=== PATIENT | female | born 1995 | race American Indian/Alaskan Native ===

== ENCOUNTER 2018-10-14 10:00 | Emergency (ER) | payer MEDICAID ==
[2018-10-14 10:42] VITALS: BMI 24.1
[2018-10-14] MEDS: Lactated Ringer's 1,000 ML IV SCH ×2 (11:50→13:00)
[2018-10-14 23:16] VITALS: BP 134/90; PULSE 75; RESP 18; TEMP 98; O2SAT 98
== END 2018-10-14 16:20 | disposition home or self-care (01) ==
LOC: H.EROB2 10:00 → MERGE 10:00 → UNMERGE 10:00 → H.EROB 10:40 → H.EROB2 16:20
DX: O26.93 Pregnancy related conditions, unspecified, third trimester (principal); R10.2 Pelvic and perineal pain; O26.853 Spotting complicating pregnancy, third trimester; Z3A.39 39 weeks gestation of pregnancy; R35.0 Frequency of micturition
CPT/HCPCS: 96374; 96376; 99283; J2270; J7120

== ENCOUNTER 2018-10-15 00:38 | Inpatient (IN) | payer MEDICAID, OTHER ==
[2018-10-14 11:53] VITALS: BMI 24.1
[2018-10-15] MEDS: Lactated Ringer's 1,000 ML IV ONE ×2 (01:20→02:50)
[2018-10-15] MEDS ORDERED: Oxytocin 30 UNIT 30 UNITS/500 ML BAG IV ONE (01:43)
[2018-10-15] MEDS ORDERED: Lactated Ringer's 1,000 ML IV SCH (01:45)
[2018-10-15] MEDS ORDERED: OXYTOCIN/0.9 % NS 20 UNIT/1,000 ML BAG IV SCH (01:45)
[2018-10-15 02:14] LABS: HEMOGLOBIN 12.7 g/dL (12.0-16.0); LYMPH # 0.7 K/uL (1.0-4.3); LYMPH % 5.8 % (20.0-40.0); MEAN CELL VOLUME 83.4 fl (81.0-99.0); MEAN CORPUSCULAR HEMOGLOBIN 26.4 pg (27.0-31.0); MEAN CORPUSCULAR HGB CONC 31.7 g/dL (33.0-37.0); MEAN PLATELET VOLUME 9.5 fl (7.2-11.7); MONO # 0.3 K/uL (0.0-0.8); MONO % 2.7 % (0.0-10.0); NEUT # 10.9 K/uL (1.8-7.0); NEUT % 91.5 % (50.0-75.0); NRBC % 0.1 % (0.0-0.0); PLATELET COUNT 227 K/uL (130-400); RBC 4.81 Mil/uL (3.80-5.20); RED CELL DISTRIBUTION WIDTH 14.1 % (11.5-14.5); WHITE BLOOD COUNT 11.9 K/uL (4.8-10.8)
[2018-10-15] MEDS ORDERED: Lidocaine 1% Inj (20ml) ONE (03:30)
--- NOTE | 2018-10-15 04:02 | OBPN ---
Datetime: 10/15/2018 03:50 IP Progress Impression: Normal progression of labor; Reassuring heart rate IP Informed Consent Obtain: Vaginal Delivery; Risks, Benefits and Alternatives Discussed IP Progress Plan: Continue present management; Anticipate Vaginal Delivery Pool Provider: Positive Membranes, Provider: Ruptured Amniotic Fluid Color, Provider: Clear Contraction Comments Provider: 1-2m FHR - Baseline A Provider: 140 Presentation-Admit: Vertex IP Progress Note Comment: Notified that she was 9cm (anteriot lip) and that pt wanted me to check to confirm exam. Active phase of labor PLAN: continue Nitrous/earlier she was offered IV sedation and/or epidural as well. observe labor progress She was given one liter of fluid...open one more liter if she decides for an epidural NICHD Accel Fetus A IP Provider: 15X15 FHR Category Provider Fetus A: Category I NICHD Variability Prov Fetus A: Moderate 6-25bpm Dilatation, Provider: 9 Effacement, Provider: 100 Station, Provider: 0 NICHD Decel Fetus A IP Provider: None Datetime: 10/14/2018 11:22 Gestation - Est Wks by US: 39.1 Vital Signs Provider: Reviewed; Within Normal Limits
[2018-10-15 04:04] LABS: LYMPHOCYTE 9 % (20-50); MONOCYTE 1 % (0-10); NEUTROPHIL 90 % (42-75); PLATELET ESTIMATE NORMAL (NORMAL); TOTAL CELLS COUNTED 100
[2018-10-15 05:03] VITALS: O2SAT 100
[2018-10-15] MEDS ORDERED: Benzocaine/Menthol SPRAY TOP PRN (06:17)
[2018-10-15] MEDS ORDERED: Oxycodone/Acetaminophen 5/325 mg Tab PO PRN ×2 (06:17→08:40)
--- NOTE | 2018-10-15 06:33 | OBDCSUM ---
Datetime: 10/14/2018 16:05 Discharge Diagnosis, Provider: False Labor - Undelivered
--- NOTE | 2018-10-15 06:34 | OBHP ---
Datetime: 10/15/2018 03:50 Presentation-Admit: Vertex Amniotic Fluid Color, Provider: Clear Contraction Comments Provider: 1-2m Pool Provider: Positive FHR Category Provider Fetus A: Category I Effacement, Provider: 100 Datetime: 10/15/2018 01:29 IP Adm Impression: Term, intrauterine ; Active labor IP Admit Plan: Admit to unit; Initiate labor protocol Extremities - PN: Normal Abdomen - PN: Normal Breast - PN: Not Done Lungs - PN: Normal Heart - PN: Normal Neurologic - PN: Normal HEENT - PN: Normal General - PN: Normal FHR - Baseline A Provider: 130-140s Membranes, Provider: Intact Comments, ACOG Physical Exam: Abdomen: Gravid IP Hx Assessment: The History has been Reviewed and is Current EGA AdmitDate IP: 39.2 Vital Signs Provider: Reviewed; Within Normal Limits IP Chief Complaint: Uterine contractions NICHD Variability Prov Fetus A: Moderate 6-25bpm NICHD Accel Fetus A IP Provider: 15X15 NICHD Decel Fetus A IP Provider: None Dilatation, Provider: 6 Station, Provider: -1 Datetime: 10/14/2018 11:22 Admit Comment, IP Provider: Pt is a 22 yo f 39.1 wk with pmh of asthma present to [facility] due to i ncrease frequency of contraction and back pain started on 04:00 10/14/12. Pt state she was having cont raction since 37 wk but this is becoming more frequent and severe. Pt state she vomited once but madhuri es any n/d/c. She does have some vaginal bleed and discharge blood no water gosh. Pt denies headache, dizziness, chest pain, sob, dysuria, polyuria, calf tenderness. [facility] [place] Allergy none med: Albuterol ( havent used for years) PMH: asthma OBGYN 1 miscarriage, 2 . PFH: diabete in parents Social: denies smoke/drink/ drug use 11:41 Assessment and plan A 22 yo f 39.1 wk with pmh of asthma present to [facility] due to increase frequency of contraction and back pain started on 04:00 10/14/12. 1Liter LR 4mg IVP morphine Monitor for any exacerbation LATE ENTRY OB Hospitalist on-call. Pt was seen with OB fellow. She appeared uncomfortable from CTX pain. Ag reew with note ... pain medication and will observe progress Pelvic Type - PN: Adequate Back - PN: Normal Thyroid - PN: Normal Gestation - Est Wks by US: 39.1 Genitourinary Exam: Normal DTRs - PN: Normal
--- NOTE | 2018-10-15 06:35 | OBHP ---
Datetime: 10/15/2018 01:29 IP Adm Impression: Term, intrauterine ; Active labor; Intact Membranes Admit Comment, IP Provider: 22 y/o at EGA 39.1 weeks by first trimester US done on with MARY 10/20/18, presents to [facility] with c/o painful uterine Contx that started yesterday at 4:30AM, and now has increased in intensity and frequency to Q 3 minutes. [facility] and was checked and sent home with 1 CM of cervical dilation and now decided to com e due to increasing CONTX. Patient also reports vaginal blood spotting and vaginal mucus discharge. R eports +FM. Denies LOF, MULLINS, chest pain, SOB, Blurred vision, N/V, dysuria. ROS: unremarkable, except as per HPI. provider: Dr Dhillon at [facility]. PMHx: Asthma. FMHx: Denies Allergies: NKA Meds: Ventolin Inh PRN OBGYN: Patient unclear of LMP due to irregular periods, h/o SABx1 and IAB x2. Gestational DM scree florecita 165 and patient states her 3 h TGT was WNL. Labs: Blood type A+, HIV neg 03/28, GBS neg 09/25, GC/CL 09/25 neg, Rubella + 03/28. Assessment 22 y/o at EGA 39 weeks with MARY 10/20/18, presenting with increasing painful uterine CONTX Q3 minutes, Pelvic exam by nurse: 6 cm of cervical dilation. Plan -Admit to L _ D -Monitor CONTX, VS -Monitor FHR tracing -Pain management -IVF hydration with LR -CBC w/ diff, type and screen Case discussed with attending Diane Katz MD PGY1 OB hospitalist note: Pt seen with PGY1. Agree with ntoe. Active labor. Discussion about labor, p ain managmentm, delivery and . She understood Presentation-Admit: Vertex Contraction Comments Provider: + Pool Provider: Negative EGA AdmitDate IP: 39.2 FHR Category Provider Fetus A: Category I
--- NOTE | 2018-10-15 06:38 | OBADHP ---
Datetime: 10/15/2018 03:50 Amniotic Fluid Color, Provider: Clear Effacement, Provider: 100 Datetime: 10/15/2018 01:29 Admit Comment, IP Provider: 22 y/o at EGA 39.1 weeks by first trimester US done on with MARY 10/20/18, presents to [facility] with c/o painful uterine Contx that started yesterday at 4:30AM, and now has increased in intensity and frequency to Q 3 minutes. [facility] and was checked and sent home with 1 CM of cervical dilation and now decided to com e due to increasing CONTX. Patient also reports vaginal blood spotting and vaginal mucus discharge. R eports +FM. Denies LOF, MULLINS, chest pain, SOB, Blurred vision, N/V, dysuria. ROS: unremarkable, except as per HPI. provider: Dr Dhillon at [facility]. PMHx: Asthma. FMHx: Denies Allergies: NKA Meds: Ventolin Inh PRN OBGYN: Patient unclear of LMP due to irregular periods, h/o SABx1 and IAB x2. Gestational DM scree florecita 165 and patient states her 3 h TGT was WNL. Labs: Blood type A+, HIV neg 03/28, GBS neg 09/25, GC/CL 09/25 neg, Rubella + 03/28. Assessment 22 y/o at EGA 39 weeks with MARY 10/20/18, presenting with increasing painful uterine CONTX Q3 minutes, Pelvic exam by nurse: 6 cm of cervical dilation. Plan -Admit to L _ D -Monitor CONTX, VS -Monitor FHR tracing -Pain management -IVF hydration with LR -CBC w/ diff, type and screen Case discussed with attending Diane Katz MD PGY1 OB hospitalist note: Pt seen with PGY1. Agree with ntoe. Active labor. Discussion about labor, p ain managmentm, delivery and . She understood Also check HIV status - not 3rd tri labs - MAHNDO Extremities - PN: Normal Abdomen - PN: Normal Breast - PN: Not Done Lungs - PN: Normal Heart - PN: Normal Neurologic - PN: Normal HEENT - PN: Normal General - PN: Normal Presentation-Admit: Vertex FHR - Baseline A Provider: 130-140s Membranes, Provider: Intact Contraction Comments Provider: + Comments, ACOG Physical Exam: Abdomen: Gravid Pool Provider: Negative IP Hx Assessment: The History has been Reviewed and is Current Vital Signs Provider: Reviewed; Within Normal Limits IP Chief Complaint: Uterine contractions NICHD Variability Prov Fetus A: Moderate 6-25bpm NICHD Accel Fetus A IP Provider: 15X15 FHR Category Provider Fetus A: Category I NICHD Decel Fetus A IP Provider: None Dilatation, Provider: 6 Station, Provider: -1 EGA AdmitDate IP: 39.2 IP Adm Impression: Term, intrauterine ; Active labor; Intact Membranes IP Admit Plan: Admit to unit; Initiate labor protocol Datetime: 10/14/2018 11:22 Pelvic Type - PN: Adequate Back - PN: Normal Thyroid - PN: Normal Gestation - Est Wks by US: 39.1 Genitourinary Exam: Normal DTRs - PN: Normal
--- NOTE | 2018-10-15 11:41 | OBDS ---
DELIVERY PERSONNEL Delivery Doctor: Rica Vasques DO Scrub Nurse: Grace Moody [employer] Worker: Lakeshia Girard RN Anesthesiologist: Patricia Warren MD Resident: Diane Katz MATERNAL INFORMATION Delivery Anesthesia: Local Medications in Delivery: lidocaine 2%, pitocin 30 units/500ml Estimated Blood Loss (ml): 200 Placenta Cultured: No Maternal Complications: None Provider Comments: Over intact perineum, of live infant. Delayed cord clamping was done. Cord was clamped and cut by FOB. was placed on mother's chest for skin to skin. Placenta was del ivered intact spontaneously (Patient wants to take it home). She remained stable. EBL 200cc LABOR SUMMARY EDC: 10/20/2018 00:00 No. Babies in Womb: 1 Attempted: No Labor Anesthesia: None LABOR INFORMATION Reason for Induction: Not Applicable Onset of Labor: 10/15/2018 01:30 Complete Dilatation: 10/15/2018 05:09 Oxytocin: N/A Group B Beta Strep: Negative Antibiotics # of Doses: 0 Antibiotics Time of Last Dose: n/a Steroids Given: None Reason Steroids Not Administered: Not Applicable MEMBRANES Membranes Rupture Method: Spontaneous Rupture of Membranes: 10/15/2018 02:50 Length of Rupture (hrs): 3.02 Amniotic Fluid Color: Clear Amniotic Fluid Amount: Small Amniotic Fluid Odor: None STAGES OF LABOR Stage 1 hrs: 3 Stage 1 min: 39 Stage 2 hrs: 0 Stage 2 min: 42 Stage 3 hrs: 0 Stage 3 min: 14 Total Time in Labor hrs: 4 Total Time in Labor min: 35 VAGINAL DELIVERY Episiotomy: None Laceration Extension: Second Degree Laceration Type: Perineal Other Laceration: left inner labial laceration Laceration Repair: Yes Laceration Repair Note: Lidocaine infiltrated (4-5cc) for anesthesia. 2.0 Vicryl Rapide suture was used to repair perineum. 3.0 Vicryl Rapide suture left inner labial laceration. Initial Vag Sponge Count: 5 Final Vag Sponge Count: 5 Initial Vag Sharps Count: 3 Final Vag Sharps Count: 3 Sponge Count Correct: Yes Sharps Count Correct: Yes Count Comment: 5 lap pads one syringe 3 needles (used 2) BABY A INFORMATION Infant Delivery Date/Time: 10/15/2018 05:51 Method of Delivery: Vaginal Born in Route : No : N/A Forceps: N/A Vacuum Extraction: N/A Shoulder Dystocia : No SHOULDER DYSTOCIA BABY A Infant Delivery Date/Time: 10/15/2018 05:51 PRESENTATION/POSITION BABY A Presentation: Cephalic Cephalic Presentation: Vertex Breech Presentation: N/A PLACENTA INFORMATION BABY A Placenta Delivery Time : 10/15/2018 06:05 Placenta Method of Delivery: Spontaneous Placenta Status: Delivered SCORES BABY A Heart Rate 1 min: >100 bpm Resp Effort 1 min: Good Cry Reflex Irritability 1 min: Cough or Sneeze or Pulls Away Muscle Tone 1 min: Active Motion Color 1 min: Body [place], Extremities Blue Resuscitation Effort 1 min: Tactile Stimulation SCORE 1 MIN: 9 Heart Rate 5 min: >100 bpm Resp Effort 5 min: Good Cry Reflex Irritability 5 min: Cough or Sneeze or Pulls Away Muscle Tone 5 min: Active Motion Color 5 min: Body [place], Extremities Blue Resuscitation Effort 5 min: N/A SCORE 5 MIN: 9 INFANT INFORMATION BABY A Gestational Age at Delivery: 39.2 Gestational Status: Term Outcome : Liveborn Infant Condition : Stable Infant Sex: Male IDENTIFICATION/MEDS BABY A ID Band Number: [id number] ID Band Location: Left Leg; Left Arm WEIGHT/LENGTH BABY A Birthweight (gms): 2890 Infant Weight (lb): 6 Infant Weight (oz): 6 CORD INFORMATION BABY A No. Cord Vessels: 3 Nuchal Cord : Around Neck x1, Loose Cord Blood Taken: Yes Suction: None
[2018-10-16 07:18] LABS: HEMOGLOBIN 9.4 g/dL (12.0-16.0); MEAN CELL VOLUME 82.1 fl (81.0-99.0); MEAN CORPUSCULAR HEMOGLOBIN 26.6 pg (27.0-31.0); MEAN CORPUSCULAR HGB CONC 32.4 g/dL (33.0-37.0); RBC 3.51 Mil/uL (3.80-5.20); RED CELL DISTRIBUTION WIDTH 14.2 % (11.5-14.5); WHITE BLOOD COUNT 12.8 K/uL (4.8-10.8)
[2018-10-16] MEDS ORDERED: Benzocaine/Menthol SPRAY TOP PRN (23:47)
--- NOTE | 2018-10-17 10:32 | OBPPN ---
Datetime: 10/17/2018 06:12 PP Pain Prov: Within normal limits PP Nausea Prov: Denies PP Flatus Prov: No PP Comments Phys Exam Prov: See progress note PP Impression Prov: Normal progression PP Plan Prov: Discharge PP Progress Note Prov: 22 y/o A3 s/p on 10/15/18 seen and examined this AM at bedside. Ovi page had an uneventful overnight. Patient reports mild pelvic pain controlled w/ pain meds. She is OOB ambulating w/o dizziness, and tolerating regular diet w/o N/V. Patient reports lochia is less than me nses in volume, she is voiding well w/ no blood noted in urine, reports passing flatus. w/o difficulties. Denies MULLINS, CP, abdominal pain, SOB, palpitations, fevers, or calf pain. O: VS WNL GEN: Sitting comfortably in bed, NAD HEENT: NCAT LUNGS: CTA, no wheezing CVS: RRR, S1, S2 present normal, no murmurs. ABD: No distended, uterus firm below umbilical level EXT: No edema, Chantell's negative A/P 22 y/o A3 s/p on 10/15/18 with normal progression, today on her PPD2. -Regular diet -Encourage ambulation -Encourage -PNV 1 tab PO daily -Ibuprofen 600mg 1 tab Q6h prn for mild-mod pain -D/C planning today. Diane Katz MD PGY1 Addendum by Dr. Arrington: I have evalauted the patient independently and I agree with the above, Disc harge home Vital Signs Provider PP: Reviewed; Within Normal Limits Datetime: 10/16/2018 06:21 PP Breasts Prov: Not Done PP Heart Prov: Normal PP Lungs Prov: Normal PP Abdomen/Uterus Prov: Normal PP Lochia Prov: Normal PP Extremities Prov: Normal PP Progress Prov: Normal
[2018-10-17 18:43] VITALS: BP 135/73; PULSE 87; RESP 18; TEMP 98.7
== END 2018-10-17 13:20 | disposition home or self-care (01) | DRG 373 ==
LOC: H.EROB2 00:38 → H.L&D 01:32 → H.OB/GYN 08:15
PROVIDERS: ADMIT Obstetrics & Gynecology; ATTEND Obstetrics & Gynecology
PROC: 10E0XZZ Delivery of Products of Conception, External Approach (ICD-10-PCS; principal; 2018-10-15)
PROC: 0KQM0ZZ Repair Perineum Muscle, Open Approach (ICD-10-PCS; 2018-10-15)
PROC: 4A1HXCZ Monitoring of Products of Conception, Cardiac Rate, External Approach (ICD-10-PCS; 2018-10-15)
DX: O69.81X0 Labor and delivery complicated by cord around neck, without compression, not applicable or unspecified (principal); O70.1 Second degree perineal laceration during delivery; Z3A.39 39 weeks gestation of pregnancy; Z37.0 Single live birth; O99.52 Diseases of the respiratory system complicating childbirth; J45.909 Unspecified asthma, uncomplicated